=== PATIENT | male | born 1980 | race African-American/Black ===

== ENCOUNTER 2018-12-12 23:03 | Emergency (ER) | payer SELFPAY | END 2018-12-12 23:45 | LOC: MADERS 23:03 | DX: F19.129 Other psychoactive substance abuse with intoxication, unspecified (principal) | CPT/HCPCS: 99284 ==

== ENCOUNTER 2019-10-18 13:35 | Emergency (ER) | payer SELFPAY ==
--- NOTE | 2019-10-18 13:56 | RAD ---
Exam: Chest one view HISTORY:Altered mental status Comparison: None FINDINGS: Cardiac silhouette: Normal Aorta: Unremarkable Pulmonary vessels: Normal Costophrenic angles: Clear LUNGS: No masses or consolidation. Pneumothorax: None Osseous abnormalities: None IMPRESSION: No acute cardiopulmonary process.
== END 2019-10-18 13:50 | disposition left against medical advice (07) ==
LOC: MADERS 13:35
DX: T67.8XXA Other effects of heat and light, initial encounter (principal); R41.82 Altered mental status, unspecified; X30.XXXA Exposure to excessive natural heat, initial encounter; Y92.096 Garden or yard of other non-institutional residence as the place of occurrence of the external cause
CPT/HCPCS: 71045; 93005; 94760

== ENCOUNTER 2019-10-28 10:16 | Emergency (ER) | payer SELFPAY | END 2019-10-28 11:02 | disposition home or self-care (01) | LOC: MADERS 10:16 | DX: H60.92 Unspecified otitis externa, left ear (principal); F17.210 Nicotine dependence, cigarettes, uncomplicated | CPT/HCPCS: 99282 ==